=== PATIENT | female | born 1960 | race Caucasian/White ===

== ENCOUNTER 2016-10-24 14:42 | Emergency (ER) | payer MEDICAID ==
[2016-10-24 14:56] VITALS: BP 106/76; PULSE 75; RESP 16; TEMP 98.2; O2SAT 100
--- NOTE | 2016-10-24 15:05 | C.PDOC ---
History Of Present Illness 56 year old female presents to the ED with complaints of lightheadedness and low blood pressure since this morning after taking first dose of a new medication clonidine. She states she has an appointment with her PMD this week. Patient denies any fever, nausea, and vomiting. Time Seen by Provider: 10/24/16 15:05 Chief Complaint (Nursing): Medical Clearance History Per: Patient History/Exam Limitations: no limitations Onset/Duration Of Symptoms: Hrs Current Symptoms Are (Timing): Still Present Recent travel outside of the [place]: No Past Medical History Reviewed: Historical Data, Nursing Documentation, Vital Signs Vital Signs: Last Vital Signs Temp 98.2 F 10/24/16 14:55 Pulse 75 10/24/16 14:55 Resp 16 10/24/16 14:55 BP 106/76 10/24/16 14:55 Pulse Ox 100 10/24/16 15:58 - Medical History PMH: HTN, Hypercholesterolemia Family History: States: Hypertension - Social History Hx Tobacco Use: No Hx Alcohol Use: No Hx Substance Use: No - Immunization History Hx Tetanus Toxoid Vaccination: No Hx Influenza Vaccination: No Hx Pneumococcal Vaccination: No Review Of Systems Constitutional: Negative for: Fever, Chills Cardiovascular: Negative for: Chest Pain, Palpitations Respiratory: Negative for: Cough, Shortness of Breath Gastrointestinal: Negative for: Nausea, Vomiting, Abdominal Pain, Diarrhea Physical Exam - Physical Exam Appears: Non-toxic, No Acute Distress Skin: Warm, Dry Head: Atraumatic Eye(s): bilateral: Normal Inspection, PERRL, EOMI Oral Mucosa: Moist Neck: No Trachea Deviated, No Midline Cervical Tenderness, No Paracervical Tenderness, Supple Chest: Symmetrical, No Deformity Cardiovascular: Rhythm Regular Respiratory: No Rhonchi, No Wheezing Extremity: Normal ROM, No Tenderness Neurological/Psych: Oriented x3, Normal Speech, Normal Cognition, Normal Cranial Nerves, Normal Motor, Normal Sensation, Normal Reflexes Gait: Steady ED Course And Treatment ECG Rhythm: Sinus Rhythm (71 bpm ) Interpretation Of ECG: Normal axis, normal intervals, and no ischemia. O2 Sat by Pulse Oximetry: 100 (room air ) Medical Decision Making Medical Decision Making: Patient refused blood work and IV fluids. Disposition - Disposition Disposition: HOME/ ROUTINE Disposition Time: 15:53 Condition: STABLE Instructions: Hypotension (ED) Forms: Gen Discharge Inst Sierra Leonean Print Language: MONGOLIAN - Clinical Impression Clinical Impression: Medication side effect - Scribe Statement The provider has reviewed the documentation as recorded by the Scribe Nancy Curry All medical record entries made by the Veeibe were at my direction and personally dictated by me. I have reviewed the chart and agree that the record accurately reflects my personal performance of the history, physical exam, medical decision making, and the department course for this patient. I have also personally directed, reviewed, and agree with the discharge instructions and disposition.
[2016-10-24] MEDS ORDERED: Sodium Chloride 0.9% 1,000 ML IV ONE (15:31)
--- NOTE | 2016-10-27 11:22 | CARD ---
APPROVED REPORT EKG Measurement Heart [id number] <Conclusion> Normal sinus rhythm Normal ECG
== END 2016-10-24 15:56 | disposition home or self-care (01) ==
LOC: C.ER 14:42
DX: I95.2 Hypotension due to drugs (principal); T46.5X5A Adverse effect of other antihypertensive drugs, initial encounter; Y92.009 Unspecified place in unspecified non-institutional (private) residence as the place of occurrence of the external cause